=== PATIENT | female | born 1980 | race Caucasian/White ===

== ENCOUNTER 2018-09-25 13:09 | Emergency (ER) | payer OTHER ==
[2018-09-25 13:39] VITALS: BMI 25.4
--- NOTE | 2018-09-25 13:41 | PDOC ---
Rapid Medical Evaluation Chief Complaint: Pain Time Seen by Provider: 09/25/18 13:36 Medical Evaluation: Allergies Allergy/AdvReac Type Severity Reaction Status Date / Time No Known Allergies Allergy Verified 09/25/18 13:35 Vital Signs Temp Pulse Resp BP Pulse Ox 98.0 F 79 18 110/58 L 100 09/25/18 13:35 09/25/18 13:35 09/25/18 13:35 09/25/18 13:35 09/25/18 13:35 09/25/18 13:40 I have performed a brief in-person evaluation of this patient. The patient presents with a chief complaint of:L flank pain x 2 weeks Pertinent physical exam findings:Stable I have ordered the following:labs The patient will proceed to the ED for further evaluation. Discharge Disposition - Diagnosis Left flank pain - Referrals - Patient Instructions - Post Discharge Activity
--- NOTE | 2018-09-25 14:25 | PDOC ---
History of Present Illness - History of Present Illness Initial Comments: 38yo F with PMH of H. pylori presenting with LLQ pain. Patient states the pain has occurred for about two weeks, steadily worsening, and described as "twisting. She was sent by her primary care physician, Dr. Diaz, for evaluation. Patient reports chronic constipation, averaging about two bowel movements per week, and last bowel movement was a normal formed dark brown stool without blood on Sunday. She also reports pelvic pain, vaginal pain and discharge which has been chronic. Patient last saw her plater hot dip specialist about a year ago and was prescribed a gel which alleviates her vaginal symptoms. Currently undergoing menstruation which started 09/21/18. Last colonoscopy/ endoscopy was last summer and was "normal." Patient had these procedures because of her constipation. Had a "tummy tuck" about three years ago in [place]. No dysuria, hematuria, frequency, or urgency. Denies fevers or chills , shortness of breath, or chest pain. <Mary Valentine - Last Filed: 09/25/18 19:39> <Monae Harmon - Last Filed: 09/26/18 07:45> - General Chief Complaint: Pain Stated Complaint: LOWER ABD PAIN Time Seen by Provider: 09/25/18 13:36 Past History - Suicide/Smoking/Psychosocial Hx Smoking History: Never smoked Hx Alcohol Use: No Drug/Substance Use Hx: No <Mary Valentine - Last Filed: 09/25/18 19:39> <Monae Harmon - Last Filed: 09/26/18 07:45> - Past Medical History Allergies/Adverse Reactions: Allergies Allergy/AdvReac Type Severity Reaction Status Date / Time No Known Allergies Allergy Verified 09/25/18 13:35 Home Medications: Ambulatory Orders Polyethylene Glycol 3350 [Miralax (For Daily Use) -] 17 gm PO DAILY PRN #1 bottle 09/25/18 Review of Systems - Review of Systems Comments:: Constitutional: no fever, no chills HEENT: no throat pain, no dysphagia Cardiovascular: no chest pain, no palpitations Respiratory: no cough, no shortness of breath Gastrointestinal: +abdominal pain, no nausea Genitourinary: no dysuria, no frequency Musculoskeletal: no myalgia, no arthralgia Skin: no rash, no itching Neurologic: no headache, no dizziness <Mary - Last Filed: 09/25/18 19:39> *Physical Exam - Vital Signs Last Vital Signs Temp Pulse Resp BP Pulse Ox 98.0 F 79 18 110/58 L 100 09/25/18 13:35 09/25/18 13:35 09/25/18 13:35 09/25/18 13:35 09/25/18 13:35 - Physical Exam Comments: General: Awake, alert, and fully oriented, in no acute distress Head: No signs of trauma Eyes: EOMI, sclera anicteric ENT: Moist mucus membranes Neck: Normal ROM, supple Lungs: Lungs clear, Normal breath sounds Cardio: Regular rhythm, S1 and S2 present Abdomen: Tender to deep palpation in LLQ, soft, nondistended. No guarding, no rebound, no masses, +R. CVA tenderness, no L. CVA tenderness Extremities: Normal range of motion, Distal pulses present SKIN: Warm, Dry, normal turgor Neurologic: Cranial nerves II through XII grossly intact. Normal speech Pelvic: External genitalia without erythema, exudate or discharge. Vaginal vault is with white physiologic discharge. The cervical os is closed. There is bleeding noted (likely menstrual). Uterus is noted to be of normal size and nontender. No cervical motion tenderness is seen. No masses are palpated. The adnexa are without masses or tenderness. <Mary - Last Filed: 09/25/18 19:39> - Vital Signs Last Vital Signs Temp Pulse Resp BP Pulse Ox 98.3 F 60 17 122/69 99 09/25/18 19:53 09/25/18 19:53 09/25/18 19:53 09/25/18 19:53 09/25/18 19:53 <Monae Harmon - Last Filed: 09/26/18 07:45> Moderate Sedation - Procedure Monitoring Vital Signs: Procedure Monitoring Vital Signs Temperature 98.0 F 09/25/18 13:35 Pulse Rate 79 09/25/18 13:35 Respiratory Rate 18 09/25/18 13:35 Blood Pressure 110/58 L 09/25/18 13:35 O2 Sat by Pulse Oximetry (%) 100 09/25/18 13:35 <MemeMary - Last Filed: 09/25/18 19:39> - Procedure Monitoring Vital Signs: Procedure Monitoring Vital Signs Temperature 98.3 F 09/25/18 19:53 Pulse Rate 60 09/25/18 19:53 Respiratory Rate 17 09/25/18 19:53 Blood Pressure 122/69 09/25/18 19:53 O2 Sat by Pulse Oximetry (%) 99 09/25/18 19:53 <Monae Harmon - Last Filed: 09/26/18 07:45> ED Treatment Course - LABORATORY CBC & Chemistry Diagram: 09/25/18 16:02 09/25/18 16:02 <Mary Valentine - Last Filed: 09/25/18 19:39> - LABORATORY CBC & Chemistry Diagram: 09/25/18 16:02 09/25/18 16:02 - ADDITIONAL ORDERS Additional order review: 09/25/18 16:02 RBC 4.12 MCV 94.5 MCHC 35.8 RDW 12.4 MPV 8.2 Neutrophils % 52.3 Lymphocytes % 37.6 Monocytes % 9.1 Eosinophils % 0.6 Basophils % 0.4 - Medications Given in the ED: ED Medications Discontinued Medications Generic Name Dose Route Start Last Admin Trade Name Freq PRN Reason Stop Dose Admin Acetaminophen 1,000 mg 09/25/18 16:05 09/25/18 16:35 Ofirmev Injection - IVPB 09/25/18 16:06 1,000 mg ONCE ONE Administration <Monae Harmon - Last Filed: 09/26/18 07:45> Medical Decision Making - Medical Decision Making 28yo F with PMH of H. pylori presenting with LLQ pain. Sent by Dr. Diaz "Please evaluate patient +Abd pain, + left CVA tenderness, + pelvic pain, CT scan abd/pelvis w/o contrast r/o renal colic vs diverticulitis vs PID" 09/25/18 15:04 Labs unremarkable UA negative. negative No leukocytosis or anemia Pending CTAP with contrast 09/25/18 17:08 Patient reports feeling better, pain is now 09/1509/25/18 18:09 US without acute pathology Plan to discharge 09/25/18 19:21 <Mary Valentine - Last Filed: 09/25/18 19:39> *DC/Admit/Observation/Transfer <Mary Valentine - Last Filed: 09/25/18 19:39> <Monae Harmon - Last Filed: 09/26/18 07:45> Diagnosis at time of Disposition: Left flank pain, Constipation - Discharge Dispostion Disposition: HOME Condition at time of disposition: Stable - Prescriptions Prescriptions: Polyethylene Glycol 3350 [Miralax (For Daily Use) -] 17 gm PO DAILY PRN #1 bottle PRN Reason: Constipation - Referrals Referrals: Haydee Diaz MD [Primary Care Provider] - Geovany Patel MD [Staff Physician] - - Patient Instructions Printed Discharge Instructions: DI for Abdominal Pain-Adult Additional Instructions: You came into the ED for abdominal pain. Labs, CT imaging, and ultrasound were normal. You can take [id number] tylenol or motrin for pain. Follow the instructions on the medication bottle. Miralax prescription has been sent to your pharmacy. Take once daily as needed for constipation. Follow-up with your plater hot dip doctor at your already scheduled appointment on Sunday Follow-up with your GI doctor if your pain does not improve with miralax. Follow-up with your primary care doctor doctor within one week to discuss this ED visit and to further evaluate your symptoms. Call and make an appointment. Immediate medical attention is required if you have: you develop worsening pain , high fevers, persistent nausea, vomiting, or any new or concerning symptoms. If you think you are having an emergency, call for emergency medical services or present to the emergency department right away.
[2018-09-25 15:59] LABS: URINE APPEARANCE CLEAR; URINE BILIRUBIN NEGATIVE (<2.0 mg/dL); URINE COLOR LTYELLOW; URINE GLUCOSE (UA) NEGATIVE (NEGATIVE); URINE KETONE NEGATIVE (NEGATIVE); URINE LEUK ESTERASE NEGATIVE (NEGATIVE); URINE NITRITE NEGATIVE (NEGATIVE); URINE PROTEIN NEGATIVE (NEGATIVE); URINE UROBILINOGEN NEGATIVE mg/dL (0.2-1.0)
[2018-09-25] MEDS ORDERED: ACETAMINOPHEN 1000 MG/100 ML VIAL (NON FORMULARY) IVPB ONE (16:05)
[2018-09-25 16:13] LABS: BASO % 0.4 % (0-2.0); EOS % 0.6 % (0-4.5); HEMATOCRIT 38.9 % (32.4-45.2); HEMOGLOBIN 13.9 GM/dL (10.7-15.3); LYMPH % 37.6 % (8-40); MCH 33.8 pg (25.7-33.7); MCHC 35.8 g/dl (32.0-36.0); MEAN CELL VOLUME 94.5 fl (80-96); MEAN PLT VOLUME 8.2 fl (7.5-11.1); MONO % 9.1 % (3.8-10.2); NEUT % 52.3 % (42.8-82.8); PLATELET COUNT 216 K/MM3 (134-434); RBC 4.12 M/mm3 (3.60-5.2); RDW 12.4 % (11.6-15.6); WHITE BLOOD COUNT 4.4 K/mm3 (4.0-10.0)
[2018-09-25] MEDS ORDERED: ACETAMINOPHEN INJECTION 100 ML IVPB ONE (16:29)
[2018-09-25 16:36] LABS: ALBUMIN 3.8 g/dl (3.4-5.0); ALK PHOS 69 U/L (45-117); ANION GAP 3 MMOL/L (8-16); BILIRUBIN,TOTAL 1.3 mg/dL (0.2-1); BLOOD UREA NITROGEN 14 mg/dL (7-18); CALCIUM 8.7 mg/dL (8.5-10.1); CHLORIDE 105 mmol/L (98-107); CO2 30 mmol/L (21-32); CREATININE 0.9 mg/dL (0.55-1.3); GLUCOSE,RANDOM 101 mg/dL (74-106); POTASSIUM 4.1 mmol/L (3.5-5.1); SGOT/AST 16 U/L (15-37); SGPT/ALT 22 U/L (13-61); SODIUM 138 mmol/L (136-145); TOT PROT 7.3 g/dl (6.4-8.2)
--- NOTE | 2018-09-25 17:02 | PDOC ---
Attending Attestation - Resident Resident Name: Mary Valentine - ED Attending Attestation I have performed the following: I have examined & evaluated the patient, The case was reviewed & discussed with the resident, I agree w/resident's findings & plan - HPI HPI: 09/25/18 17:00 The patient is a 38 year old female with a significant past medical history of H. Pylori, who presents to the ED with 2 weeks of left lower abdominal pain and left flank pain. The patient also reports a white vaginal discharge. She states she is currently on her menstrual cycle. Denies fever, chills, chest pain, SOB, palpitation, dizziness, weakness, N, V, D , abdominal pain, bladder and bowel problems, leg swelling, No sick contacts or travel. No new changes in medications. PMD Dr Diaz 09/25/18 17:01 - Physicial Exam PE: 09/25/18 17:00 NAD, well appearing, MMM, nl conjunctiva, anicteric; neck supple. lungs clear, RRR, abdomen soft nondistended. tummy tuck scar; +LLQ and suprapubic tenderness. SMITH x4, no focal neuro deficits. No peripheral edema. normal color for ethnicity, WWP. - Medical Decision Making 09/25/18 17:00 hpi as documented VS wnl, reassuring, no fever DDx abdominal pain: Renal colic, biliary colic, metabolic/electrolyte derangements. GERD, PUD, esophageal spasm, pancreatitis, hepatitis, constipation , colitis, gastroenteritis, cholecystitis, UTI, pyelonephritis, ileus, hernia, appendicitis, diverticulitis, menses. ovarian cyst. STD. PID labs and lytes wnl. neg preg test UA neg for infection, no blood. no preg pelvic exam by resident, no acute findings, so doubt pelvic etiology CT a/p to r/o diverticulitis.
--- NOTE | 2018-09-25 18:16 | PDOC ---
*Physical Exam - Vital Signs Last Vital Signs Temp Pulse Resp BP Pulse Ox 98.0 F 79 18 110/58 L 100 09/25/18 13:35 09/25/18 13:35 09/25/18 13:35 09/25/18 13:35 09/25/18 13:35 - Physical Exam General Appearance: Yes: Nourished Gastrointestinal/Abdominal: positive: Normal Bowel Sounds, Tender (llq suprapubic ttp. no rebound no guarding. no cva tenderness.) ED Treatment Course - LABORATORY CBC & Chemistry Diagram: 09/25/18 16:02 09/25/18 16:02 - ADDITIONAL ORDERS Additional order review: Laboratory Results 09/25/18 09/25/18 09/25/18 16:02 15:47 15:47 Sodium 138 Potassium 4.1 Chloride 105 Carbon Dioxide 30 Anion Gap 3 L BUN 14 Creatinine 0.9 Creat Clearance w eGFR > 60 Random Glucose 101 Calcium 8.7 Total Bilirubin 1.3 H AST 16 ALT 22 Alkaline Phosphatase 69 Total Protein 7.3 Albumin 3.8 Urine Color Ltyellow Urine Appearance Clear Urine pH 5.0 Ur Specific [place] 1.013 Urine Protein Negative Urine Glucose (UA) Negative Urine Ketones Negative Urine Blood Negative Urine Nitrite Negative Urine Bilirubin Negative Urine Urobilinogen Negative Ur Leukocyte Esterase Negative Urine HCG, Qual Negative 09/25/18 16:02 RBC 4.12 MCV 94.5 MCHC 35.8 RDW 12.4 MPV 8.2 Neutrophils % 52.3 Lymphocytes % 37.6 Monocytes % 9.1 Eosinophils % 0.6 Basophils % 0.4 - Medications Given in the ED: ED Medications Discontinued Medications Generic Name Dose Route Start Last Admin Trade Name [place] PRN Reason Stop Dose Admin Acetaminophen 1,000 mg 09/25/18 16:05 09/25/18 16:35 Ofirmev Injection - IVPB 09/25/18 16:06 1,000 mg ONCE ONE Administration Medical Decision Making - Medical Decision Making 09/25/18 18:14 38 yo F h/o constipation, abdominoplasty, h pylori here with c/o llq pain. describes as a twisting pain. signed out to me awaiting ct a/p results. assumed care of pt at 5 pm. on my repeat examination. pt with llq ttp. ct a/p normal. no comment on ovaries. will obtain pelvic us r/o ovarian cyst/ torsion. if negative. will dc home. recommend bowel regimen as pt only bm every 3 - 4 days. GI followup. 09/25/18 19:39 tvus with normal ovaries. will dc home treatment for constipation. recommend gi followup. . *DC/Admit/Observation/Transfer Diagnosis at time of Disposition: Left flank pain, Constipation - Discharge Dispostion Disposition: HOME Condition at time of disposition: Stable - Prescriptions Prescriptions: Polyethylene Glycol 3350 [Miralax (For Daily Use) -] 17 gm PO DAILY PRN #1 bottle PRN Reason: Constipation - Referrals Referrals: Haydee Diaz MD [Primary Care Provider] - Geovany Patel MD [Staff Physician] - - Patient Instructions Printed Discharge Instructions: DI for Abdominal Pain-Adult Additional Instructions: You came into the ED for abdominal pain. Labs, CT imaging, and ultrasound were normal. You can take [id number] tylenol or motrin for pain. Follow the instructions on the medication bottle. Miralax prescription has been sent to your pharmacy. Take once daily as needed for constipation. Follow-up with your manual tester doctor at your already scheduled appointment tomorrow. Follow-up with your GI doctor if your pain does not improve with miralax. Follow-up with your primary care doctor doctor within one week to discuss this ED visit and to further evaluate your symptoms. Call and make an appointment. Immediate medical attention is required if you have: you develop worsening pain , high fevers, persistent nausea, vomiting, or any new or concerning symptoms. If you think you are having an emergency, call for emergency medical services or present to the emergency department right away. - Post Discharge Activity
[2018-09-25 19:56] VITALS: BP 122/69; PULSE 60; TEMP 98.3
== END 2018-09-25 19:56 | disposition home or self-care (01) ==
LOC: JER 13:09
PROC: 3E033NZ Introduction of Analgesics, Hypnotics, Sedatives into Peripheral Vein, Percutaneous Approach (ICD-10-PCS; principal; 2018-09-25)
DX: R10.32 Left lower quadrant pain (principal); K59.00 Constipation, unspecified
CPT/HCPCS: 36415; 74177-TC; 76856-TC; 80053; 81003; 84703; 85025; 87086; 96374; 99283-25; J0131

== ENCOUNTER → 2020-10-06 | Day surgery (SDC) | payer OTHER | END | disposition home or self-care (01) | LOC: JRADIR 10:24 | PROVIDERS: ATTEND Physician Assistant | PROC: BU18YZZ Fluoroscopy of Uterus and Fallopian Tubes using Other Contrast (ICD-10-PCS; principal; 2020-10-06) | DX: N97.9 Female infertility, unspecified (principal) | CPT/HCPCS: 58340; 74740-TC-FY; 76000-TC-FY; 84703 ==